=== PATIENT | female | born 1950 | race Native Hawaiian/Other Pacific Islander ===

== ENCOUNTER → 2018-07-11 13:34 | Outpatient (CLI) | payer MEDICAID, SELFPAY ==
[2018-07-11 14:35] LABS: Add Manual Diff / Slide Review NO; Eosinophils Percent Auto 4.9 % (2-4); Hematocrit 40.5 % (36-46); Hemoglobin 14.1 g/dL (12.0-16.0); Lymphocytes Percent Auto 27.7 % (25-40); Mean Corpuscular HGB Conc 34.9 % (30-36); Mean Corpuscular Hemoglobin 30.5 PG (26-34); Mean Corpuscular Volume 87.3 fL (80-100); Monocytes Percent Auto 5.3 % (3-14); Neutrophils Absolute Auto 6100 /uL (3000-5900); Neutrophils Percent Auto 61.1 % (50-75); Platelet Count 269 X10^3/uL (150-400); Red Blood Cell Count 4.64 X10^6/uL (4.0-5.2); Red Cell Distribution Width 13.8 % (11.6-14.8); White Blood Cell Count 9.9 X10^3/uL (4.5-11.0)
[2018-07-11 14:44] LABS: Alanine Aminotransferase 27 IU/L (9-52); Albumin Globulin Ratio 1.1 (1.0-2.8); Alkaline Phosphatase 64 U/L (38-126); Aspartate Aminotransferase 21 IU/L (14-36); BUN Creatinine Ratio 16.7 (6-22); Bilirubin Total 0.6 mg/dL (0.2-1.3); Blood Urea Nitrogen 10 mg/dL (7-17); Carbon Dioxide 30 mmol/L (22-32); Chloride 105 mmol/L (98-107); Estimated Glomerular Filt Rate > 60.0 mL/min (>60); Globulin 3.6 g/dL (1.7-4.1); Glucose 96 mg/dL (80-110); HEMOLYSIS < 15 (0-50); Potassium 4.2 mmol/L (3.4-5.1); Sodium 146 mmol/L (137-145); Total Protein 7.6 g/dL (6.3-8.2)
[2018-07-11 14:57] LABS: Free T3, Triiodothyronine Free 2.16 pg/mL (2.77-5.27); Free T4, Direct Thyroxine 0.71 ng/dL (0.78-2.19)
== END ==
PROVIDERS: PCP Family Medicine
DX: E89.0 Postprocedural hypothyroidism (principal)
CPT/HCPCS: 36415; 80053; 84439; 84443; 84481; 85025

== ENCOUNTER → 2018-09-09 16:13 | Outpatient (CLI) | payer MEDICAID, SELFPAY ==
[2018-09-09 17:41] LABS: Free T3, Triiodothyronine Free 4.32 pg/mL (2.77-5.27)
[2018-09-09 17:55] LABS: TSH w/ Reflex to FT4 < 0.02 uIU/mL (0.47-4.68)
== END ==
PROVIDERS: PCP Family Medicine
DX: E89.0 Postprocedural hypothyroidism (principal)
CPT/HCPCS: 36415; 84439; 84443; 84481

== ENCOUNTER → 2020-04-05 09:54 | Outpatient (CLI) | payer MEDICAID, SELFPAY ==
[2020-04-05 11:28] LABS: Alanine Aminotransferase 25 IU/L (<35); Albumin 4.5 g/dL (3.5-5.0); Alkaline Phosphatase 72 U/L (38-126); Aspartate Aminotransferase 32 IU/L (14-36); BUN Creatinine Ratio 20.3 (6-22); Bilirubin Total 0.8 mg/dL (0.2-1.3); Blood Urea Nitrogen 14 mg/dL (7-17); Calcium 9.8 mg/dL (8.4-10.2); Carbon Dioxide 32 mmol/L (22-32); Chloride 100 mmol/L (98-107); Estimated Glomerular Filt Rate > 60.0 mL/min (>60); Globulin 4.3 g/dL (1.7-4.1); Glucose 127 mg/dL (80-110); HEMOLYSIS < 15 (0-50); Potassium 4.3 mmol/L (3.4-5.1); Sodium 139 mmol/L (137-145); Total Protein 8.8 g/dL (6.3-8.2)
[2020-04-06 07:14] LABS: Triiodothyronine T3 Total 24 ng/dL (71-180)
== END ==
PROVIDERS: Referring Provider Internal Medicine; Visit Provider Internal Medicine
DX: R60.9 Edema, unspecified (principal); E03.9 Hypothyroidism, unspecified
CPT/HCPCS: 36415; 80053; 84439; 84443; 84480

== ENCOUNTER → 2020-04-19 15:43 | Outpatient (CLI) | payer MEDICAID, SELFPAY ==
--- NOTE | 2020-04-19 | DI.ECHO.S_ITS ---
[facility]---------+ [facility] +---------+ : : [address] : [place] : : : : [id number] : : : : Phone: [phone]---------+ Echocardiogram Report + + :Name: FRANCIE GAYTAN Study Date: 04/19/2020 Height: 60 in : :[facility] Weight: 211 lb : : Gender: Female BSA: 1.9 m2 : :: 1950 Age: 69 yrs BP: 132/80 mmHg: :Reason For Study: Edema : : Performed By: Verna Page : :Referring: RHEA SOTELO : + + Interpretation Summary The left ventricle is normal in size and wall thickness. The ejection fraction is estimated to be 60-65%. There are no obvious focal wall motion abnormalities noted but poor endocardial definition reduces the sensitivity for the detection of such. Diastolic parameters suggest probable normal left ventricular diastolic function and normal filling pressures. The right ventricle is normal in size and function. Pulmonary artery pressures cannot be estimated because of the lack of a measurable TR jet velocity. The left atrium is moderately dilated. The right atrium is mildly dilated. There is no significant valvular heart disease. The ascending aorta is mild-moderately enlarged. No significant changes since prior echo study on 12/05/2015. Procedure: A two-dimensional transthoracic echocardiogram with color flow and Doppler was performed. The study quality was technically adequate. Comparison is made with the echocardiogram of 12/05/2015. The patient was in normal sinus rhythm during the exam. Left Ventricle: The left ventricle is normal in size and wall thickness. The ejection fraction is estimated to be 60-65%. There are no obvious focal wall motion abnormalities noted but poor endocardial definition reduces the sensitivity for the detection of such. Diastolic parameters suggest probable normal left ventricular diastolic function and normal filling pressures. Right Ventricle: The right ventricle is normal in size and function. Atria: The left atrium is moderately dilated. The right atrium is mildly dilated. There is no Doppler evidence for an interatrial shunt. Mitral Valve: The mitral valve leaflets are slightly calcified. There is mild mitral annular calcification. There is trace mitral regurgitation. Aortic Valve: The aortic valve is mildly calcified. There is no aortic valve stenosis. No aortic regurgitation is present. Tricuspid Valve: The tricuspid valve is normal in structure and function. There is trace tricuspid regurgitation. Pulmonary artery pressures cannot be estimated because of the lack of a measurable TR jet velocity. Pulmonic Valve: The pulmonic valve is not well visualized. There is mild pulmonic regurgitation. There is no significant valvular heart disease. Great Vessels: The aortic root is normal size. The ascending aorta is mild- moderately enlarged. The pulmonary artery is not well visualized, but is probably normal size. The IVC is of normal diameter and collapses greater than 50% with a sniff. This suggests a low right atrial pressure of 3 mm Hg. Pericardium/ Pleura There is no pericardial effusion. There is no pleural effusion. MMode/2D Measurements & Calculations LVIDd: 5.2 cm LVOT diam: 1.9 cm LVIDs: 3.5 cm Ao root diam: 3.1 cm FS: 33.0 % asc Aorta Diam: 4.1 cm IVSd: 0.72 cm LVPWd: 0.82 cm LV rivera. diameter/BSA (cm/m^2): 2.7 LV sys. diameter/BSA (cm/m^2): 1.8 LA A2 area: 23.7 cm2 RA long axis: 5.0 cm LA A4 area: 24.5 cm2 RA area: 19.1 cm2 LA length (vol): 5.4 cm RA vol: 61.2 ml LA vol: 91.2 ml RA : 32.0 ml/m2 LA vol index: 47.8 ml/m2 IVC diam: 1.8 cm RVD1 (basal): 4.7 cm RVD2 (mid): 3.9 cm Doppler Measurements & Calculations Ao V2 max: 163.6 cm/sec LVOT Max Jairo: 86.9 cm/sec Ao V2 mean: 114.7 cm/sec LV V1 max P.0 mmHg Ao max P.7 mmHg LV V1 VTI: 18.6 cm Ao mean P.8 mmHg RHIANNA(I,D): 1.6 cm2 Ao V2 VTI: 33.1 cm RHIANNA(V,D): 1.5 cm2 sev ratio: 0.56 RHIANNA indexed to BSA (cm^2/m^2): 0.85 MV E max jairo: 79.0 cm/sec PA V2 max: 71.4 cm/sec MV A max jairo: 61.7 cm/sec PA V2 mean: 48.7 cm/sec MV E/A: 1.3 PA mean P.1 mmHg Med Peak E' Jairo: 5.3 cm/sec PA Accel Time: 0.09 sec E/E' med: 15.0 Lat Peak E' Jairo: 9.9 cm/sec E/E' lat: 8.0 E/e' average: 11.5 MV dec time: 0.19 sec SV(LVOT): 53.5 ml Reading Physician:09:25 AM
== END ==
PROVIDERS: Referring Provider Internal Medicine; Visit Provider Internal Medicine
DX: I37.1 Nonrheumatic pulmonary valve insufficiency (principal); I77.89 Other specified disorders of arteries and arterioles; R60.9 Edema, unspecified; E03.9 Hypothyroidism, unspecified
CPT/HCPCS: 93306